=== PATIENT | male | born 1990 | race African-American/Black ===

== ENCOUNTER 2024-10-20 18:01 | Emergency (ER) | payer OTHER ==
[2024-10-20 18:27] VITALS: BMI 29.0
[2024-10-20] MEDS ORDERED: ACETAMINOPHEN INJECTION 100 ML ONE (18:49)
[2024-10-20] MEDS: SODIUM CHLORIDE 0.9% 500 ML INFUS.BAG IV ONE (19:20)
[2024-10-20] MEDS: ACETAMINOPHEN 1000 MG/100 ML BAG IVPB ONE (19:20)
[2024-10-20 19:38] LABS: MCHC 31.9 g/dl (32.3-36.5); MEAN CELL VOLUME 88.3 fl (79.0-92.2); MEAN PLT VOLUME 9.7 fl (9.4-12.4); RDW 14.1 % (12.0-15.6)
[2024-10-20 19:39] LABS: URINE APPEARANCE CLEAR; URINE BILIRUBIN NEGATIVE (NEGATIVE); URINE COLOR YELLOW; URINE GLUCOSE (UA) 3+ (NEGATIVE); URINE KETONE NEGATIVE (NEGATIVE); URINE LEUK ESTERASE NEGATIVE (NEGATIVE); URINE NITRITE NEGATIVE (NEGATIVE); URINE PROTEIN NEGATIVE (NEGATIVE); URINE UROBILINOGEN 0.2 mg/dL (0.2-1.0)
[2024-10-20 19:45] LABS: INR 1.06 (0.83-1.09); PROTHROMBIN TIME (PATIENT) 11.7 SEC (9.7-13.0)
[2024-10-20 19:48] LABS: ACTIVATED PTT 31.2 SECONDS (25.2-36.5)
[2024-10-20 20:09] LABS: GLUCOSE,RANDOM 87.0 mg/dL (74-106)
[2024-10-20 20:10] LABS: TOT PROT 7.3 g/dl (6.4-8.2)
[2024-10-20 20:12] LABS: ALK PHOS 119.0 U/L (40-150)
[2024-10-20 20:13] LABS: COCAINE, UR NEGATIVE (NEGATIVE)
[2024-10-20 20:14] LABS: METHADONE, UR NEGATIVE (NEGATIVE); OPIATES, URI NEGATIVE (NEGATIVE); PHENCYCLIDINE,URINE NEGATIVE (NEGATIVE); URINE BARBITURATES NEGATIVE (NEGATIVE); URINE BENZODIAZEPINES NEGATIVE (NEGATIVE)
[2024-10-20 20:15] LABS: SGOT/AST 32.0 U/L (5-34); SGPT/ALT 23.0 U/L (0-55)
[2024-10-20 20:16] LABS: CREATININE 0.77 mg/dL (0.55-1.3)
[2024-10-20 20:19] LABS: CO2 26.0 mmol/L (21-32); URINE AMPHETAMINES NEGATIVE (NEGATIVE)
[2024-10-20 20:54] LABS: HCV DIAGNOSTIC IN-HOUSE W/RFLX NON-REACTIVE (NONREACTIVE); HIV INTERPRETATION NEGATIVE (NEGATIVE)
[2024-10-20] MEDS ORDERED: KETOROLAC TROMETHAMINE 15 MG/ML VIAL ONE (21:01)
[2024-10-20] MEDS: KETOROLAC TROMETHAMINE 15 MG/ML VIAL IVPUSH ONE (21:09)
[2024-10-20 22:11] VITALS: BP 130/76; PULSE 50; RESP 18; TEMP 98.1
== END 2024-10-20 22:11 | disposition home or self-care (01) ==
LOC: JER 18:01
PROC: 3E033NZ Introduction of Analgesics, Hypnotics, Sedatives into Peripheral Vein, Percutaneous Approach (ICD-10-PCS; principal; 2024-10-20)
PROC: 3E0333Z Introduction of Anti-inflammatory into Peripheral Vein, Percutaneous Approach (ICD-10-PCS; 2024-10-20)
DX: R07.89 Other chest pain (principal); R11.2 Nausea with vomiting, unspecified; R19.7 Diarrhea, unspecified; N62 Hypertrophy of breast; R68.84 Jaw pain; K08.89 Other specified disorders of teeth and supporting structures
CPT/HCPCS: 36415; 71046-TC-FY; 80053; 80307; 81003; 83690; 83735; 84484; 85025; 85610; 85730; 86803; 87086; 87389; 93005; 93010; 99285-25